=== PATIENT | female | born 1945 | race Caucasian/White ===

== ENCOUNTER 2018-12-19 02:42 | Emergency (ER) | payer MEDICARE, OTHER ==
--- NOTE | 2018-12-19 02:57 | EDM.PDOC ---
ED HPI GENERAL MEDICAL PROBLEM - General Chief Complaint: Cardiovascular Problem Stated Complaint: HANDS ARE NUMB AND HBP Time Seen by Provider: 12/19/18 02:56 Source of Information: Reports: Patient - History of Present Illness INITIAL COMMENTS - FREE TEXT/NARRATIVE: HISTORY AND PHYSICAL: History of present illness: [Patient presents with bilateral arm numbness, she does have a history of anxiety panic, she awoke from sleep feeling somewhat anxious her arms began to feel mom and she presents as such in no apparent distress she has no fever nausea vomiting chest pain shortness breath headache dizziness palpitation about a urine symptoms ] Review of systems: As per history of present illness and below otherwise all systems reviewed and negative. Past medical history: As per history of present illness and as reviewed below otherwise noncontributory. Surgical history: As per history of present illness and as reviewed below otherwise noncontributory. Social history: No reported history of drug or alcohol abuse. Family history: As per history of present illness and as reviewed below otherwise noncontributory. Physical exam: HEENT: Atraumatic, normocephalic, pupils reactive, negative for conjunctival pallor or scleral icterus, mucous membranes moist, throat clear, neck supple, nontender, trachea midline. Lungs: Clear to auscultation, breath sounds equal bilaterally, chest nontender. Heart: S1S2, regular, negative for clicks, rubs, or JVD. Abdomen: Soft, nondistended, nontender. Negative for masses or hepatosplenomegaly. Negative for costovertebral tenderness. Pelvis: Stable nontender. Genitourinary: Deferred. Rectal: Deferred. Extremities: Atraumatic, negative for cords or calf pain. Neurovascular unremarkable. Neuro: Awake, alert, oriented. Cranial nerves II through XII unremarkable. Cerebellum unremarkable. Motor and sensory unremarkable throughout. Exam nonfocal. Diagnostics: [UA troponin EKG Chest [address] no contrast ] Therapeutics: [ oral saline Macrobid ] Impression: [ UTI Anxiety/panic Numbness resolved with Ativan ] Definitive disposition and diagnosis as appropriate pending reevaluation and review of above. - Related Data Allergies Allergy/AdvReac Type Severity Reaction Status Date / Time No Known Allergies Allergy Verified 08/10/15 10:44 Home Meds: Home Meds Aspirin 81 mg PO BRK 08/10/15 [History] Meclizine [Antivert] 1 tab PO ASDIRECTED PRN 08/10/15 [History] amLODIPine Besylate [Amlodipine Besylate] 5 mg PO BEDTIME 08/10/15 [History] Albuterol [Ventolin HFA] 1 puff INH ASDIRECTED PRN 10/21/15 [History] Esomeprazole [NexIUM] 20 mg PO DAILY 10/21/15 [History] Fluticasone Propionate [Flovent HFA 100 mcg] 1 inhalation INH ASDIRECTED [History] LORazepam 1 mg PO BID PRN 10/21/15 [History] Metoprolol Tartrate 25 mg PO DAILY 12/19/18 [History] Sertraline HCl 50 mg PO DAILY 12/19/18 [History] Past Medical History HEENT History: Reports: Other (See Below) Other HEENT History: acoustic neuroma with surgery Cardiovascular History: Reports: Hypertension Respiratory History: Reports: Asthma Gastrointestinal History: Reports: Bowel Obstruction Genitourinary History: Reports: None [employer] SALES History: Reports: Musculoskeletal History: Reports: Osteoarthritis Other Musculoskeletal History: spinal stenosis, osteoprosis Neurological History: Reports: Other (See Below) 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 Psychiatric History: Reports: Anxiety Endocrine/Metabolic History: Reports: None Hematologic History: Reports: None Immunologic History: Reports: None Oncologic (Cancer) History: Reports: None Dermatologic History: Reports: None - Infectious Disease History Infectious Disease History: Reports: Chicken Pox - Past Surgical History HEENT Surgical History: Reports: Other (See Below) GI Surgical History: Reports: Appendectomy, Small Bowel Female Surgical History: Reports: Breast Biopsy, D&C, Hysterectomy Neurological Surgical History: Reports: Other (See Below) Oncologic Surgical History: Reports: Biopsy of Breast Social & Family History - Family History Family Medical History: Noncontributory ED ROS GENERAL - Review of Systems Review Of Systems: See Below ED EXAM, GENERAL - Physical Exam Exam: See Below Course - Vital Signs Last Recorded V/S: Last Vital Signs Temp 96.4 F 12/19/18 04:39 Pulse 63 12/19/18 04:39 Resp 18 12/19/18 04:39 BP 120/72 12/19/18 04:39 Pulse Ox 94 L 12/19/18 04:39 - Orders/Labs/Meds Orders: Active Orders 24 hr Category Date Time Status EKG Documentation Completion [RC] STAT Care 12/19/18 02:57 Active CULTURE URINE [RM] Stat Lab 12/19/18 04:45 Received Sodium Chloride 0.9% [Normal Saline] 1,000 ml Med 12/19/18 03:00 Active IV STAT Medication Orders Sodium Chloride (Normal Saline) 1,000 mls @ 125 mls/hr IV STAT SHAILESH Last Admin: 12/19/18 03:12 Dose: 125 mls/hr Labs: Laboratory Tests 12/19/18 12/19/18 12/19/18 Range/Units 03:09 03:09 04:45 WBC 7.57 (4.0-11.0) K/uL RBC 4.09 L (4.30-5.90) M/uL Hgb 13.1 (12.0-16.0) g/dL Hct 38.5 (36.0-46.0) % MCV 94.1 (80.0-98.0) fL MCH 32.0 (27.0-32.0) pg MCHC 34.0 (31.0-37.0) g/dL RDW Std Deviation 46.1 (28.0-62.0) fl RDW Coeff of Anna 13 (11.0-15.0) % Plt Count 212 (150-400) K/uL MPV 10.90 (7.40-12.00) fL Neut % (Auto) 53.7 (48.0-80.0) % Lymph % (Auto) 36.5 (16.0-40.0) % [place] % (Auto) 7.0 (0.0-15.0) % Eos % (Auto) 2.5 (0.0-7.0) % Baso % (Auto) 0.3 (0.0-1.5) % Neut # (Auto) 4.1 (1.4-5.7) K/uL Lymph # (Auto) 2.8 H (0.6-2.4) K/uL [place] # (Auto) 0.5 (0.0-0.8) K/uL Eos # (Auto) 0.2 (0.0-0.7) K/uL Baso # (Auto) 0.0 (0.0-0.1) K/uL Nucleated RBC % 0.0 /100WBC Nucleated RBCs # 0 K/uL Sodium 142 (136-145) mmol/L Potassium 3.6 (3.5-5.1) mmol/L Chloride 104 (98-107) mmol/L Carbon Dioxide 25.5 (21.0-32.0) mmol/L BUN 10 (7.0-18.0) mg/dL Creatinine 0.6 (0.6-1.0) mg/dL Est Cr Clr Drug Dosing 67.56 mL/min Estimated GFR (MDRD) > 60.0 ml/min Glucose 106 (74-106) mg/dL Calcium 9.0 (8.5-10.1) mg/dL Total Bilirubin 0.3 (0.2-1.0) mg/dL AST 13 L (15-37) IU/L ALT 18 (14-63) IU/L Alkaline Phosphatase 61 (46-116) U/L Troponin I < 0.050 (0.000-0.056) ng/mL Total Protein 7.0 (6.4-8.2) g/dL Albumin 3.5 (3.4-5.0) g/dL Globulin 3.5 (2.6-4.0) g/dL Albumin/Globulin Ratio 1.0 (0.9-1.6) Urine Color YELLOW Urine Appearance CLEAR Urine pH 5.5 (5.0-8.0) Ur Specific Seibert 1.015 (1.001-1.035) Urine Protein NEGATIVE (NEGATIVE) mg/dL Urine Glucose (UA) NEGATIVE (NEGATIVE) mg/dL Urine Ketones NEGATIVE (NEGATIVE) mg/dL Urine Occult Blood TRACE-INTACT H (NEGATIVE) Urine Nitrite NEGATIVE (NEGATIVE) Urine Bilirubin NEGATIVE (NEGATIVE) Urine Urobilinogen 0.2 (<2.0) EU/dL Ur Leukocyte Esterase MODERATE H (NEGATIVE) Urine RBC 0-2 (0-2/HPF) Urine WBC 2-3 (0-5/HPF) Ur Epithelial Cells OCCASIONAL (NONE-FEW) Urine Bacteria RARE (NEGATIVE) Meds: Medications Generic Name Dose Route Start Last Admin Trade Name Freq PRN Reason Stop Dose Admin Sodium Chloride 1,000 mls @ 125 mls/hr 12/19/18 03:00 12/19/18 03:12 Normal Saline IV 125 mls/hr STAT SHAILESH Administration Discontinued Medications Generic Name Dose Route Start Last Admin Trade Name Freq PRN Reason Stop Dose Admin Lorazepam 1 mg 12/19/18 02:58 12/19/18 03:12 Ativan IVPUSH 12/19/18 02:59 1 mg ONETIME ONE Administration Departure - Departure Time of Disposition: 05:09 Disposition: Home, Self-Care 01 Condition: Good Clinical Impression: UTI (urinary tract infection), Anxiety Referrals: Clement Link MD [Primary Care Provider] - Forms: ED Department Discharge Additional Instructions: The following information is given to patients seen in the emergency department who are being discharged to home. This information is to outline your options for follow-up care. We provide all patients seen in our emergency department with a follow-up referral. The need for follow-up, as well as the timing and circumstances, are variable depending upon the specifics of your emergency department visit. If you don't have a primary care physician on staff, we will provide you with a referral. We always advise you to contact your personal physician following an emergency department visit to inform them of the circumstance of the visit and for follow-up with them and/or the need for any referrals to a consulting specialist. The emergency department will also refer you to a specialist when appropriate. This referral assures that you have the opportunity for follow-up care with a specialist. All of these measure are taken in an effort to provide you with optimal care, which includes your follow-up. Under all circumstances we always encourage you to contact your private physician who remains a resource for coordinating your care. When calling for follow-up care, please make the office aware that this follow-up is from your recent emergency room visit. If for any reason you are refused follow-up, please contact the [facility] emergency department at and asked to speak to the emergency department charge nurse. - My Orders Last 24 Hours: My Active Orders 12/19/18 02:57 EKG Documentation Completion [RC] STAT 12/19/18 03:00 Sodium Chloride 0.9% [Normal Saline] 1,000 ml IV STAT 12/19/18 04:45 CULTURE URINE [RM] Stat - Assessment/Plan Last 24 Hours: My Active Orders 12/19/18 02:57 EKG Documentation Completion [RC] STAT 12/19/18 03:00 Sodium Chloride 0.9% [Normal Saline] 1,000 ml IV STAT 12/19/18 04:45 CULTURE URINE [] Stat
[2018-12-19] MEDS: LORazepam 2 MG/ML SDV IVPUSH ONE (03:12)
[2018-12-19] MEDS: Sodium Chloride 0.9% 1,000 ML IV SCH (03:12)
[2018-12-19 03:38] LABS: BLOOD UREA NITROGEN,BUN 10 mg/dL (7.0-18.0); CARBON DIOXIDE,CO2 25.5 mmol/L (21.0-32.0); CHLORIDE,CL 104 mmol/L (98-107); GLUCOSE RANDOM 106 mg/dL (74-106); POTASSIUM,K 3.6 mmol/L (3.5-5.1); SODIUM,NA 142 mmol/L (136-145)
--- NOTE | 2018-12-19 04:23 | CR ---
INDICATION: dizziness, arm numbness COMPARISON: 08/02/2015. FINDINGS: Single PA view of the chest demonstrates adequate inflation of the lungs. Pole focal airspace consolidation, pneumothorax or effusion. Probable small calcified granuloma in both lungs. Cardiomediastinal silhouette is within normal limits. There are no acute osseous findings. IMPRESSION: No acute cardiopulmonary findings. Dictated by Sushil Lima MD @ 12/19/2018 4:22:59 AM Dictated by: Sushil Lima MD @ 12/19/2018 04:23:05 (Electronically Signed)
--- NOTE | 2018-12-19 04:38 | CT ---
INDICATION: Dizziness. Arm numbness TECHNIQUE: CT head without contrast. COMPARISON: 06/21/15 FINDINGS: Postsurgical changes are again seen status post right lateral occipital/suboccipital craniectomy. There is mild age-related cortical atrophy. The ventricles are within normal limits for the patient`s age. There is no mass effect or midline shift. Few small white matter hypodensities are suggestive of minor chronic small vessel ischemic changes. There is no loss of bailon-white differentiation. There is no evidence of an acute intracranial hemorrhage. Calcifications are again seen along the right aspect of the inferior brainstem and in the region of the right internal auditory canal. No acute calvarial fracture is seen. The visualized paranasal sinuses and mastoid air cells are clear. The visualized orbits are within normal limits. IMPRESSION: No evidence of an acute intracranial hemorrhage, mass effect or loss of bailon-white differentiation. Postsurgical changes again seen. Dictated by Raji Reddy MD @ 12/19/2018 4:36:45 AM Please note that all CT scans at this facility use dose modulation, iterative reconstruction, and/or weight-based dosing when appropriate to reduce radiation dose to as low as reasonably achievable. Dictated by: Raji Reddy MD @ 12/19/2018 04:36:50 (Electronically Signed)
[2018-12-19 05:26] VITALS: BP 128/74
== END 2018-12-19 05:20 | disposition home or self-care (01) ==
LOC: MW.ED 02:42
DX: N39.0 Urinary tract infection, site not specified (principal); F41.9 Anxiety disorder, unspecified; I10 Essential (primary) hypertension; Z79.82 Long term (current) use of aspirin; Z79.899 Other long term (current) drug therapy; Z90.49 Acquired absence of other specified parts of digestive tract; Z90.710 Acquired absence of both cervix and uterus
CPT/HCPCS: 36415; 70450; 71045; 80053; 81001; 84484; 85025; 87086; 93005; 96361; 96374; 99284; J2060; J7040

== ENCOUNTER 2020-04-13 07:48 | Emergency (ER) | payer MEDICARE, OTHER ==
--- NOTE | 2020-04-13 08:58 | EDM.PDOC ---
ED HPI GENERAL MEDICAL PROBLEM - General Chief Complaint: ENT Problem Stated Complaint: SPIT UP BLOOD CLOT, KEEPS BLEEDING Time Seen by Provider: 04/13/20 07:55 Source of Information: Reports: Patient, Old Records History Limitations: Reports: No Limitations - History of Present Illness INITIAL COMMENTS - FREE TEXT/NARRATIVE: This is a very pleasant 75-year-old female with a past medical history of vertigo, hypertension, and GERD presenting with concern for hemoptysis. Around 7:00 this morning, the patient went to wash her face when she spit up a blood clot out of her mouth, she states it was about an inch long. This was not preceded by or followed by any hemoptysis or hematemesis. It has not happened since then. She denies any epistaxis, gingival bleeding, hematuria, or bloody stools. No personal history of coagulopathy. No personal history or family history of lung cancer. She is not actively coughing up any blood right now. She did note some dried blood on her lower lip. No other complaints. Past medical history: Reviewed, no additional pertinent history. Surgical history: Reviewed in system, no additional pertinent history. Social history: Reviewed in system, no additional pertinent history. Family history: Reviewed in system, no additional pertinent history. PHYSICAL EXAM Vital signs reviewed. Nursing notes reviewed. Constitutional: Awake, alert, non-distressed. Head: Normocephalic, atraumatic. Eyes: EOMI, conjunctiva normal, no discharge, no scleral icterus. Ears, Nose, Throat: External ears and nose normal, moist oral mucosa. One of the right lower molars does have a small amount of oozing blood around the margin of the gingiva, I believe this is the source of the bleeding. There is a small amount of dried blood on the lower lip. There is no evidence of blood on the tongue or in the posterior oropharynx. Cardiovascular: 2+ radial pulse, capillary refill less than 2 seconds. Pulmonary: normal work of breathing, no accessory muscle use. Abdomen/GI: Soft, nontender, nondistended, no guarding or rigidity, no masses. Musculoskeletal: No deformities. Integumentary: Appropriate color for ethnicity, warm, dry, no pallor or jaundice, no rash. Neurologic: Alert, answering questions appropriately, normal speech, no facial droop, moving all extremities well. Psychiatric: Appropriate mood and affect, normal thought process. This patient was seen and evaluated during the 2019 SARS-CoV-2 novel coronavirus pandemic period. Community viral transmission is ongoing at time of this encounter and the emergency department is operating under pandemic response procedures. - Related Data Allergies Allergy/AdvReac Type Severity Reaction Status Date / Time No Known Allergies Allergy Verified 04/13/20 08:04 Home Meds: Home Meds Aspirin 81 mg PO BRK 08/10/15 [History] Meclizine [Antivert] 1 tab PO ASDIRECTED PRN 08/10/15 [History] amLODIPine Besylate [Amlodipine Besylate] 5 mg PO BEDTIME 08/10/15 [History] Albuterol [Ventolin HFA] 1 puff INH ASDIRECTED PRN 10/21/15 [History] Esomeprazole [NexIUM] 20 mg PO DAILY 10/21/15 [History] Fluticasone Propionate [Flovent HFA 100 mcg] 1 inhalation INH ASDIRECTED 10/21/15 [History] LORazepam 1 mg PO BID PRN 10/21/15 [History] Metoprolol Tartrate 25 mg PO DAILY 12/19/18 [History] Sertraline HCl 50 mg PO DAILY 12/19/18 [History] Past Medical History HEENT History: Reports: Other (See Below) Other HEENT History: acoustic neuroma with surgery Cardiovascular History: Reports: Hypertension Respiratory History: Reports: Asthma Gastrointestinal History: Reports: Bowel Obstruction Genitourinary History: Reports: None [employer] History: Reports: Musculoskeletal History: Reports: Osteoarthritis Other Musculoskeletal History: spinal stenosis, osteoprosis Neurological History: Reports: Other (See Below) 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 Psychiatric History: Reports: Anxiety Endocrine/Metabolic History: Reports: None Hematologic History: Reports: None Immunologic History: Reports: None Oncologic (Cancer) History: Reports: None Dermatologic History: Reports: None - Infectious Disease History Infectious Disease History: Reports: Chicken Pox - Past Surgical History Head Surgeries/Procedures: Reports: None HEENT Surgical History: Reports: Other (See Below) Other HEENT Surgeries/Procedures: tumor GI Surgical History: Reports: Appendectomy, Small Bowel Female Surgical History: Reports: Breast Biopsy, D&C, Hysterectomy Neurological Surgical History: Reports: Other (See Below) Other Neurological Surgeries/Procedures: Neuroma Oncologic Surgical History: Reports: Biopsy of Breast Social & Family History - Family History Family Medical History: No Pertinent Family History - Tobacco Use Tobacco Use Status *Q: Never Tobacco User - Caffeine Use Caffeine Use: Reports: None - Recreational Drug Use Recreational Drug Use: No ED ROS ENT - Review of Systems Review Of Systems: See Below ED EXAM, ENT - Physical Exam Exam: See Below Course - Vital Signs Text/Narrative:: 75-year-old female spit of a blood clot, noted to have a small amount of gingival bleeding to one of the right lower molars. Hemodynamically stable, no clinical signs of anemia. She is not having hemoptysis or hematemesis. We are going to have her swish ice water and spit to see if that controls the gingival bleeding. If not then we will try swishing and spitting TXA. 9:13 AM: I reevaluated the patient and her gingival bleeding stopped after swishing and spitting some ice water for about 10 minutes. There is no evidence of any ongoing bleeding. Given that the bleeding is stopped, she is stable to discharge home with outpatient dentistry follow-up. We discussed treatment home with teabags applied to bleeding area, should it recur. We also discussed avoiding hard or crunchy foods that could potentially injury to the gums. We will have her follow-up with a dentist in the next week or so for reevaluation. Plan: Patient is stable to discharge home with outpatient primary care clinic follow-up. Strict emergency department return precautions were provided, patient indicated understanding. All questions were answered prior to departure. Discharged in good condition. Last Recorded V/S: Last Vital Signs Temp 36.3 C 04/13/20 08:01 Pulse 78 04/13/20 08:01 Resp 16 04/13/20 08:01 BP 135/75 04/13/20 08:01 Pulse Ox 98 04/13/20 08:01 Departure - Departure Time of Disposition: 09:14 Disposition: Home, Self-Care 01 Condition: Good Clinical Impression: Gingival bleeding - Discharge Information *PRESCRIPTION DRUG MONITORING PROGRAM REVIEWED*: Not Applicable *COPY OF PRESCRIPTION DRUG MONITORING REPORT IN PATIENT JUAN: Not Applicable Forms: ED Department Discharge Additional Instructions: Please follow-up with your dentist in about a week for reevaluation. If your gums start bleeding again, you can swish and spit ice water for about 10 to 15 minutes. You can also apply a black tea teabag to the area of bleeding, this can help blood clots form. Warning signs to come back to the ER include: Severe bleeding, trouble breathing, shortness of breath, lightheadedness, or any other new or concerning symptoms. Please return the emergency department immediately if your symptoms worsen or if you feel worse. Thank you for choosing the [facility] emergency department in [facility] for your medical needs today. It was a pleasure caring for you. The following information is given to patients seen in the emergency department who are being discharged. This information is to outline your options for follow-up care. We provide all patients seen in our emergency department with a follow-up referral. The need for follow-up, as well as the timing and circumstances, are variable depending upon the specifics of your emergency department visit. If you don't have a primary care physician on staff, we will provide you with a referral. We always advise you to contact your personal physician following an emergency department visit to inform them of the circumstance of the visit and for follow-up with them and/or the need for any referrals to a consulting specialist. The emergency department will also refer you to a specialist when appropriate. This referral assures that you have the opportunity for follow-up care with a specialist. All of these measure are taken in an effort to provide you with optimal care, which includes your follow-up. Under all circumstances we always encourage you to contact your private physician who remains a resource for coordinating your care. When calling for follow-up care, please make the office aware that this follow-up is from your recent emergency room visit. If for any reason you are refused follow-up, please contact the [facility] Emergency Department at and asked to speak to the emergency department charge nurse. If you do not have a primary care physician that is caring for you, you can contact these clinics below to set up an appointment to establish care: [facility] - Primary Care [address] [place] [id number] [address] Sepsis Event Note (ED) - Evaluation Sepsis Screening Result: No Definite Risk - Focused Exam Vital Signs: Vital Signs Temp Pulse Resp BP Pulse Ox 04/13/20 08:01 36.3 C 78 16 135/75 98
[2020-04-13 09:34] VITALS: BP 118/48; PULSE 64
== END 2020-04-13 09:30 | disposition home or self-care (01) ==
LOC: MW.ED 07:48
DX: K06.8 Other specified disorders of gingiva and edentulous alveolar ridge (principal); I10 Essential (primary) hypertension; J45.909 Unspecified asthma, uncomplicated; M19.90 Unspecified osteoarthritis, unspecified site; F41.9 Anxiety disorder, unspecified; Z79.82 Long term (current) use of aspirin; Z79.899 Other long term (current) drug therapy
CPT/HCPCS: 99282; 99284

== ENCOUNTER 2020-04-23 03:22 | Emergency (ER) | payer MEDICARE, OTHER ==
[2020-04-23] MEDS ORDERED: traMADol 50 MG Tab PO ONE (03:57)
--- NOTE | 2020-04-23 04:01 | EDM.PDOC ---
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 Patient reports that she saw the dentist approximately 1 week ago and is having discomfort to the right lower premolars however she reports that the pain is limited to her tooth is different than the pain she is experiencing now to her right ear. Patient denies any recent fevers, shakes, chills, nausea, vomiting, diarrhea, dysuria, frequency, urgency, vertigo. Patient reports she has decreased hearing at baseline out of her right ear secondary to her acoustic neuroma. Patient denies any sore throat. Patient denies any other neurological complaints or deficits. Review of systems: As per history of present illness and below otherwise all systems reviewed and negative. Past medical history: As per history of present illness and as reviewed below otherwise noncontributory. Surgical history: As per history of present illness and as reviewed below otherwise noncontributory. Social history: No reported history of drug or alcohol abuse. Family history: As per history of present illness and as reviewed below otherwise noncontributory. Physical exam: Constitutional: Patient is oriented to person, place, and time. Appears well- developed and well-nourished. No distress. HEENT: Moist mucous membranes Head: Normocephalic and atraumatic Eyes: Right eye exhibits no discharge. Left eye exhibits no discharge. No scleral icterus Neck: Normal range of motion. No tracheal deviation present. Cardiovascular: Normal rate and regular rhythm. Pulmonary: Effort normal, no respiratory distress. Abdominal: No distention Musculoskeletal: Normal range of motion Neurologic: Alert and oriented to person, place and time. Skin: [place], warm and dry. Psychiatric: Normal mood and affect. Behavior is normal. Judgment and thought content normal. Nursing note and vital signs have been reviewed Patient's ER physical exam is significant for a normal-appearing left tympanic membrane and ear canal. Patient's right ear canal had a significant amount of cerumen and was unable to visualize the tympanic membrane. Patient's right ear canal was irrigated with approximately 250 cc of saline with removal of small amount of cerumen. Using a small curette I was able to remove a small amount of cerumen. Patient's ear canal appears to be extremely narrow which is likely secondary to her procedure. After removal of the cerumen I was able to visualize her right tympanic membrane and it appears pearly bailon without any fluid behind it. Patient has no posterior auricular lymphadenopathy. Neck supple, no nuchal rigidity, no photophobia, no Kernig's sign or Brudzinski sign, patient does not present with signs or symptoms of be consistent with meningitis. This patient was seen and evaluated during the 2019 SARS-CoV-2 novel coronavirus pandemic period. Community viral transmission is ongoing at time of this encounter and the emergency department is operating under pandemic response procedures. Assessment and plan: This is a 75-year-old female who presents ER today complaining of pain to her right ear. Patient reports that she has baseline hearing loss to her right ear. Patient's exam is unremarkable except for cerumen impaction in the right ear canal that was irrigated and removed with curette. Patient will be given Ultram here in ED and will be discharged home with a short prescription for Ultram to assist her with her pain until she is able to follow-up with her primary care doctor. It is unclear to me whether or not the pain was secondary to cerumen impaction or other etiologies that might need further investigation by specialist. Patient will need to follow-up with her primary care doctor next week for reevaluation and possible referral to ENT if the pain persists. Reassessment at the time of disposition demonstrates that the patient is in no acute distress. The patient has remained stable throughout the entire ED visit and is without objective evidence for acute process requiring urgent intervention or hospitalization. The patient is stable for discharge, counseling is provided as documented above, discussed symptomatic treatment and specific conditions for return. I have spoken with the patient/caregiver and discussed todays findings, in addition to providing specific details for the plan of care. Questions are answered and there is agreement with the plan. Definitive disposition and diagnosis as appropriate pending reevaluation and review of above. right ear Pain Score (Numeric/FACES): 9 - Related Data Allergies Allergy/AdvReac Type Severity Reaction Status Date / Time No Known Allergies Allergy Verified 04/23/20 03:31 Home Meds: Home Meds Aspirin 81 mg PO BRK 08/10/15 [History] Meclizine [Antivert] 1 tab PO ASDIRECTED PRN 08/10/15 [History] amLODIPine Besylate [Amlodipine Besylate] 5 mg PO BEDTIME 08/10/15 [History] Albuterol [Ventolin HFA] 1 puff INH ASDIRECTED PRN 10/21/15 [History] Esomeprazole [NexIUM] 20 mg PO DAILY 10/21/15 [History] Fluticasone Propionate [Flovent HFA 100 mcg] 1 inhalation INH ASDIRECTED 10/21/15 [History] LORazepam 1 mg PO BID PRN 10/21/15 [History] Metoprolol Tartrate 25 mg PO DAILY 12/19/18 [History] Sertraline HCl 50 mg PO DAILY 12/19/18 [History] atorvaSTATin [Lipitor] 20 mg PO BEDTIME 04/23/20 [History] traMADol [Ultram] 50 mg PO Q6H PRN #12 tab 04/23/20 [Rx] Past Medical History HEENT History: Reports: Other (See Below) Other HEENT History: acoustic neuroma with surgery Cardiovascular History: Reports: Hypertension Respiratory History: Reports: Asthma Gastrointestinal History: Reports: Bowel Obstruction Genitourinary History: Reports: None [employer] History: Reports: Musculoskeletal History: Reports: Osteoarthritis Other Musculoskeletal History: spinal stenosis, osteoprosis Neurological History: Reports: Other (See Below) 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 Psychiatric History: Reports: Anxiety Endocrine/Metabolic History: Reports: None Insulin Pump Model and Tandem Mill Sticker: None Hematologic History: Reports: None Immunologic History: Reports: None Oncologic (Cancer) History: Reports: None Dermatologic History: Reports: None - Infectious Disease History Infectious Disease History: Reports: Chicken Pox - Past Surgical History Head Surgeries/Procedures: Reports: None HEENT Surgical History: Reports: Other (See Below) Other HEENT Surgeries/Procedures: tumor GI Surgical History: Reports: Appendectomy, Small Bowel Female Surgical History: Reports: Breast Biopsy, D&C, Hysterectomy Neurological Surgical History: Reports: Other (See Below) Other Neurological Surgeries/Procedures: Neuroma Oncologic Surgical History: Reports: Biopsy of Breast Social & Family History - Family History Family Medical History: No Pertinent Family History - Tobacco Use Tobacco Use Status *Q: Never Tobacco User - Caffeine Use Caffeine Use: Reports: Coffee, Soda - Recreational Drug Use Recreational Drug Use: No ED ROS GENERAL - Review of Systems Review Of Systems: See Below ED EXAM, GENERAL - Physical Exam Exam: See Below Course - Vital Signs Last Recorded V/S: Last Vital Signs Temp 97.0 F 04/23/20 04:15 Pulse 64 04/23/20 04:15 Resp 18 04/23/20 04:15 BP 120/72 04/23/20 04:15 Pulse Ox 96 04/23/20 04:15 - Orders/Labs/Meds Meds: Medications Discontinued Medications Generic Name Dose Route Start Last Admin Trade Name Freq PRN Reason Stop Dose Admin Tramadol HCl 50 mg 04/23/20 03:57 04/23/20 04:06 Ultram PO 04/23/20 03:58 50 mg ONETIME ONE Administration Departure - Departure Time of Disposition: 04:01 Disposition: Home, Self-Care 01 Condition: Good Clinical Impression: Otalgia, right ear, Impacted cerumen, right ear - Discharge Information Prescriptions: traMADol [Ultram] 50 mg PO Q6H PRN #12 tab PRN Reason: Pain Instructions: Earwax Buildup, Adult, Earache, Adult Referrals: Clement Link MD [Primary Care Provider] - Forms: ED Department Discharge Additional Instructions: You were seen and evaluated the ER today secondary to pain to your right ear. The etiology of the pain is unclear however it may be related to excessive amount of cerumen buildup within your right ear canal. Your right ear canal is extremely narrow however after removal of the cerumen, your your canal as well as your eardrum do not appear to be infected or any abnormality identified. We will give you prescription for Ultram to assist you with pain. Please make an appointment to see your primary care physician if your pain persists for more than 2 to 3 days after the irrigation. The following information is given to patients seen in the emergency department who are being discharged to home. This information is to outline your options for follow-up care. We provide all patients seen in our emergency department with a follow-up referral. The need for follow-up, as well as the timing and circumstances, are variable depending upon the specifics of your emergency department visit. If you don't have a primary care physician on staff, we will provide you with a referral. We always advise you to contact your personal physician following an emergency department visit to inform them of the circumstance of the visit and for follow-up with them and/or the need for any referrals to a consulting specialist. The emergency department will also refer you to a specialist when appropriate. This referral assures that you have the opportunity for follow-up care with a specialist. All of these measure are taken in an effort to provide you with optimal care, which includes your follow-up. Under all circumstances we always encourage you to contact your private physician who remains a resource for coordinating your care. When calling for follow-up care, please make the office aware that this follow-up is from your recent emergency room visit. If for any reason you are refused follow-up, please contact the [facility] Emergency Department at and asked to speak to the emergency department charge nurse. [facility] - Primary Care [address] [place] [id number] [facility] [address] [place] [id number] Sepsis Event Note (ED) - Evaluation Sepsis Screening Result: No Definite Risk
[2020-04-23 04:22] VITALS: BP 120/72; PULSE 64
== END 2020-04-23 04:15 | disposition home or self-care (01) ==
LOC: MW.ED 03:22
DX: H61.21 Impacted cerumen, right ear (principal); I10 Essential (primary) hypertension; J45.909 Unspecified asthma, uncomplicated; M19.90 Unspecified osteoarthritis, unspecified site; Z79.82 Long term (current) use of aspirin; Z79.899 Other long term (current) drug therapy
CPT/HCPCS: 69210; 99282; A9270; 69209; 99283

== ENCOUNTER 2022-09-24 20:34 | Emergency (ER) | payer MEDICARE, OTHER ==
[2022-09-24 20:52] VITALS: PULSE 76
[2022-09-24 22:59] VITALS: BP 141/75
== END 2022-09-24 22:58 | disposition home or self-care (01) ==
LOC: MW.ED 20:34
DX: S09.90XA Unspecified injury of head, initial encounter (principal); S00.12XA Contusion of left eyelid and periocular area, initial encounter; S50.811A Abrasion of right forearm, initial encounter; I10 Essential (primary) hypertension; J45.909 Unspecified asthma, uncomplicated; M19.90 Unspecified osteoarthritis, unspecified site; Z79.899 Other long term (current) drug therapy; W10.9XXA Fall (on) (from) unspecified stairs and steps, initial encounter
CPT/HCPCS: 70450; 70450-26; 72125; 72125-26; 99282; 99283

== ENCOUNTER 2023-07-30 15:05 | Emergency (ER) | payer MEDICARE, OTHER ==
[2023-07-30 16:01] VITALS: BP 115/55; PULSE 69
[2023-07-30] MEDS: Amoxicillin/Clavulanate K 875-125 MG Tab PO ONE (17:41)
== END 2023-07-30 16:05 | disposition home or self-care (01) ==
LOC: MW.ED 15:05
DX: H66.92 Otitis media, unspecified, left ear (principal); I10 Essential (primary) hypertension; E78.00 Pure hypercholesterolemia, unspecified; Z79.51 Long term (current) use of inhaled steroids; Z79.899 Other long term (current) drug therapy; Z90.710 Acquired absence of both cervix and uterus
CPT/HCPCS: 99282; 99283

== ENCOUNTER 2023-10-27 05:44 | Emergency (ER) | payer MEDICARE, OTHER ==
[2023-10-27 06:53] LABS: BASOPHILS ABSOLUTE AUTO 0.02 K/uL (0.00-0.20); BASOPHILS PERCENT AUTO 0.4 % (0.0-1.0); EOSINOPHILS ABSOLUTE AUTO 0.12 K/uL (0.00-0.45); EOSINOPHILS PERCENT AUTO 2.2 % (0.0-6.0); HEMATOCRIT 36.3 % (37.0-47.0); HEMOGLOBIN 12.4 g/dL (12.0-16.0); IMMATURE GRAN ABSOLUTE AUTO 0.01 K/uL (0.00-0.05); IMMATURE GRAN PERCENT AUTO 0.2 % (0.0-0.4); LYMPHOCYTES ABSOLUTE AUTO 1.49 K/uL (1.00-4.80); LYMPHOCYTES PERCENT AUTO 27.4 % (24.0-44.0); MEAN CORPUSCULAR HEMOGLOBIN 31.9 pg (28.0-32.0); MEAN CORPUSCULAR HGB CONC 34.2 g/dL (32.0-36.0); MEAN CORPUSCULAR VOLUME 93.3 fL (83.0-99.0); MEAN PLATELET VOLUME 11.1 fL (9.4-12.3); MONOCYTES ABSOLUTE AUTO 0.35 K/uL (0.00-0.80); MONOCYTES PERCENT AUTO 6.4 % (0.0-8.0); NEUTROPHILS ABSOLUTE AUTO 3.45 K/uL (1.80-7.70); NEUTROPHILS PERCENT AUTO 63.4 % (41.0-71.0); PLATELET COUNT,PLT 195 K/uL (150-400); RED BLOOD CELL COUNT 3.89 M/uL (4.10-5.30); WHITE BLOOD CELL COUNT,WBC 5.44 K/uL (3.9-11.3)
[2023-10-27] MEDS: Sodium Chloride 0.9% 10 ML Syringe FLUSH PRN (06:54)
[2023-10-27] MEDS: Sodium Chloride 0.9% 500 ML IV SCH (06:54)
[2023-10-27] MEDS: Sodium Chloride 0.9% 2.5 ML Syringe FLUSH PRN (06:54)
[2023-10-27 07:12] LABS: A/G RATIO 1.1 (0.9-1.6); ALANINE AMINOTRANSFERASE,ALT 19 IU/L (14-63); ALBUMIN 3.7 g/dL (3.4-5.0); ALKALINE PHOSPHATASE 62 U/L (46-116); ASPARTATE AMNIOTRANSFERASE,AST 15 IU/L (15-37); BILIRUBIN TOTAL 0.4 mg/dL (0.2-1.0); BLOOD UREA NITROGEN,BUN 9 mg/dL (7.0-18.0); CARBON DIOXIDE,CO2 28.3 mmol/L (21.0-32.0); CHLORIDE,CL 105 mmol/L (98-107); CREATININE 0.6 mg/dL (0.6-1.0); EST CRCL DRUG DOSING (CG) 61.12 mL/min; GLUCOSE RANDOM 113 mg/dL (74-106); POTASSIUM,K 4.3 mmol/L (3.5-5.1); SODIUM,NA 140 mmol/L (136-145)
[2023-10-27 07:24] LABS: ESTIMATED GFR 92 mL/min (>60)
[2023-10-27 07:56] LABS: APPEARANCE,URINE CLEAR; BILIRUBIN,URINE NEGATIVE (NEGATIVE); COLOR,URINE YELLOW; GLUCOSE,URINE NEGATIVE (NEGATIVE); KETONES,URINE NEGATIVE (NEGATIVE); LEUKOCYTE ESTERASE,URINE SMALL (NEGATIVE); NITRITE,URINE NEGATIVE (NEGATIVE); OCCULT BLOOD,URINE NEGATIVE (NEGATIVE); PH,URINE 6.5 (5.0-8.0); PROTEIN,URINE NEGATIVE (NEGATIVE); UROBILINOGEN,URINE 0.2 EU/dL (<2.0)
[2023-10-27 08:01] LABS: BACTERIA,URINE FEW (NEGATIVE); EPITHELIAL CELLS,URINE OCCASIONAL (NONE-FEW); RBC,URINE 0-1 (0-2/HPF)
[2023-10-27 08:42] VITALS: BP 130/67; PULSE 67
== END 2023-10-27 08:42 | disposition home or self-care (01) ==
LOC: MW.ED 05:44
DX: R42 Dizziness and giddiness (principal); I10 Essential (primary) hypertension; E78.00 Pure hypercholesterolemia, unspecified; Z90.49 Acquired absence of other specified parts of digestive tract; Z90.710 Acquired absence of both cervix and uterus; Z79.899 Other long term (current) drug therapy
CPT/HCPCS: 36415; 80053; 81001; 84484; 85025; 87086; 93005; 96360; 99284; J3490; J7040; 93010; 99283

== ENCOUNTER 2024-06-01 21:58 | Emergency (ER) | payer MEDICARE, OTHER ==
[2024-06-02] MEDS: Diphtheria,Pertussis(Acell),Tetanus Vaccine 0.5 ML Syringe IM ONE (00:15)
[2024-06-02 01:20] VITALS: BP 140/61; PULSE 61
== END 2024-06-02 02:53 | disposition home or self-care (01) ==
LOC: MW.ED 21:58
DX: S02.31XA Fracture of orbital floor, right side, initial encounter for closed fracture (principal); S01.411A Laceration without foreign body of right cheek and temporomandibular area, initial encounter; I10 Essential (primary) hypertension; E78.00 Pure hypercholesterolemia, unspecified; J45.909 Unspecified asthma, uncomplicated; Z23 Encounter for immunization; Z79.899 Other long term (current) drug therapy; Z79.51 Long term (current) use of inhaled steroids; W01.0XXA Fall on same level from slipping, tripping and stumbling without subsequent striking against object, initial encounter; Y93.89 Activity, other specified
CPT/HCPCS: 12011; 70450; 70450-26; 70486; 70486-26; 90471; 90715; 99282; 99283-25